=== PATIENT | male | born 1965 | race Caucasian/White ===

== ENCOUNTER 2016-10-23 13:19 | Emergency (ER) | payer SELFPAY ==
[~2016-10-23] VITALS: Ht 182.9 cm; Wt 115.5 kg
[2016-10-23 13:21] VITALS: BP 144/74; PULSE 100; RESP 18; TEMP 98.2; O2SAT 97
--- NOTE | 2016-10-23 13:40 | PD ---
Physical Exam Time Seen by Provider: 13:36 Narrative 51yo M c/o urinating blood since 11:30. L flank pain. Was given Toradol injection by [facility] Nurse. Hx of kidney stones w/ lithotripsy. Patient stable. Patient seen in triage. Awaiting bed placement. Data Data Last Documented VS Vital Signs Date Time Temp Pulse Resp B/P Pulse Ox O2 Delivery O2 Flow Rate FiO2 10/23/16 13:21 98.2 100 18 144/74 97 MDM Supervised Visit with HECTOR: Magda Mackenzie Oct 23, 2016 13:40
[2016-10-23] MEDS ORDERED: ONDANSETRON HCL 4 MG/2 ML VIAL IV PUSH ONE (14:30)
[2016-10-23] MEDS ORDERED: SODIUM CHLOR 0.9% 1000 ML INJ 1,000 ML IV ONE (14:30)
[2016-10-23] MEDS ORDERED: HYDROmorphone HCL PF 1 MG/ML VIAL IVS ONE (14:30)
--- NOTE | 2016-10-23 14:48 | PD ---
HPI Chief Complaint: Complaint Time Seen by Provider: 14:15 Travel History International Travel<30 days: No Contact w/Intl Traveler<30days: No Traveled to known affect area: No History of Present Illness HPI Patient is a 51-year-old male presenting to him or return for evaluation of left flank pain and hematuria patient states symptoms started at 10:30 this morning abruptly., Patient urinated and he passed bright red blood and noticed 2 small specks in his urine. Patient reports feeling nauseated and has vomited. He went to the clinic at work where the nurse gave him IV fluids and Toradol. Patient reports a history of kidney stones, he's had 2 previous surgeries with [place] u[facility]. Patient states he drinks 2 gallons of 3 T&A, he was advised by his doctor to avoid drinking sweet tea he states that he cannot give it up. Patient reports his pain is a 10 out of 10, the Toradol did not relieve his pain. PFSH Past Medical History Kidney Stones: Yes Past Surgical History Genitourinary Surgery: Yes (HE) Social History Alcohol Use: No Tobacco Use: Yes Substance Use: No Allergies-Medications (Allergen,Severity, Reaction): Coded Allergies: No Known Allergies (Unverified , 10/23/16) Reported Meds & Prescriptions Reported Meds & Active Scripts Active Percocet (Oxycodone-Acetaminophen) 5-325 mg Tab 1 Tab PO Q4H PRN Review of Systems Except as stated in HPI: all other systems reviewed are Neg Gastrointestinal: Positive: Nausea, Vomiting Genitourinary: Positive: Hematuria, Flank Pain Physical Exam Narrative GENERAL: Well-developed, well-nourished, alert male. Appears uncomfortable SKIN: Focused skin assessment warm/dry. HEAD: Atraumatic. Normocephalic. EYES: Pupils equal and round. No scleral icterus. No injection or drainage. ENT: No nasal bleeding or discharge. Mucous membranes pink and moist. NECK: Trachea midline. No JVD. CARDIOVASCULAR: Regular rate and rhythm. No murmur appreciated. RESPIRATORY: No accessory muscle use. Clear to auscultation. Breath sounds equal bilaterally. GASTROINTESTINAL: Abdomen soft, non-tender, nondistended. Hepatic and splenic margins not palpable. MUSCULOSKELETAL: No obvious deformities. No clubbing. No cyanosis. No edema. + CVAT on the left NEUROLOGICAL: Awake and alert. No obvious cranial nerve deficits. Motor grossly within normal limits. Normal speech. PSYCHIATRIC: Appropriate mood and affect; insight and judgment normal. Data Data Last Documented VS Vital Signs Date Time Temp Pulse Resp B/P Pulse Ox O2 Delivery O2 Flow Rate FiO2 10/23/16 15:12 17 10/23/16 13:21 98.2 100 144/74 97 Orders Urinalysis - C+S If Indicated (10/23/16 14:15) Ct Abd/Pel W/O Iv Contrast (10/23/16 ) Sodium Chlor 0.9% 1000 Ml Inj (Ns 1000 M (10/23/16 14:30) Iv Access Insert/Monitor (10/23/16 14:17) Ondansetron Inj (Zofran Inj) (10/23/16 14:30) Hydromorphone Pf Inj (Dilaudid Pf Inj) (10/23/16 14:30) Labs Laboratory Tests Test 10/23/16 15:11 Urine Color YELLOW Urine Turbidity HAZY Urine pH 6.0 Urine Specific [place] 1.044 Urine Protein 30 mg/dL Urine Glucose (UA) NEG mg/dL Urine Ketones 10 mg/dL Urine Occult Blood LARGE Urine Nitrite NEG Urine Bilirubin NEG Urine Urobilinogen 4.0 MG/DL Urine Leukocyte Esterase NEG Urine RBC /hpf Urine WBC 1 /hpf Urine Squamous Epithelial 1 /hpf Cells Urine Calcium Oxalate Crystals FEW /hpf Urine Mucus MANY /lpf Microscopic Urinalysis Comment CULT NOT INDICATED MDM Medical Decision Making Medical Screen Exam Complete: Yes Emergency Medical Condition: Yes Interpretation(s) Vital Signs Date Time Temp Pulse Resp B/P Pulse Ox O2 Delivery O2 Flow Rate FiO2 10/23/16 13:21 98.2 100 18 144/74 97 Differential Diagnosis uti vs calculi vs pyelonephritis Narrative Course Age is 49-year-old male presenting to the emergency department evaluation of left flank pain and hematuria. Patient states he is a history of kidney stones. Patient's vital signs are stable, he appears uncomfortable. Pain medication order per my attending physician. Urinalysis and CT scan ordered. CT scan shows several questionable tiny less than 1 mm left renal calculi with no obstruction. Urinalysis shows large occult blood, patient will be sent home with pain medication. He is encouraged to maintain adequate fluid intake, increase his intake of water and less sweet tea. He is encouraged to follow-up with his urologist. He was advised to return to emergency department for any new or worsening symptoms. Patient verbalized understanding of these instructions. Patient is stable for discharge. Diagnosis Primary Impression: Kidney stones Additional Impression: Hematuria Referrals: Primary Care Physician Urologist 1 week Patient Instructions: General Instructions Additional Instructions: Drink more water, less sweet tea Follow-up with urology Follow-up with primary doctor Return to the Emergency department for any new or worsening symptoms Do Not Drive or operate machinery while taking narcotic medication Med/Other Pt SpecificInfo: Prescription(s) given Scripts Naproxen 500 Mg [id number] Mg PO BID PRN (PAIN SCALE 1 TO 10) #60 TAB Ref 0 Prov:Becca Velásquez 10/23/16 Oxycodone-Acetaminophen (Percocet)5-325 mg Tab1 Tab PO Q4H PRN (PAIN) #12 TAB Ref 0 Prov:Bandar Torres MD 10/23/16 Disposition: 01 DISCHARGE HOME Condition: Stable Becca Velásquez Oct 23, 2016 14:48
--- NOTE | 2016-10-23 15:26 | RADRPT ---
EXAM DATE/TIME: 10/23/2016 14:49 [facility] COMPARISON: No previous studies available for comparison. INDICATIONS : Evaluate for renal calculi. Abdominal pain. ORAL CONTRAST: No oral contrast ingested. RADIATION DOSE: 26.83 CTDIvol (mGy) MEDICAL HISTORY : None SURGICAL HISTORY : None. ENCOUNTER: Initial ACUITY: 1 day PAIN SCALE: 6/10 LOCATION: Bilateral abdomen. TECHNIQUE: Volumetric scanning of the abdomen and pelvis was performed. Using automated exposure control and ad justment of the mA and/or kV according to patient size, radiation dose was kept as low as reasonably achievable to obtain optimal diagnostic quality images. FINDINGS: LOWER LUNGS: The visualized lower lungs are clear. LIVER: Homogeneous density without lesion. There is no dilation of the biliary tree. No calcified gallston es. SPLEEN: Normal size without lesion. PANCREAS: Within normal limits. KIDNEYS: Normal in size and shape. There is no mass or hydronephrosis. There are several questionable tiny le ss than 1 mm left renal calculi. The ureters are unremarkable. ADRENAL GLANDS: Within normal limits. VASCULAR: There is no aortic aneurysm. BOWEL/MESENTERY: The stomach, small bowel, and colon demonstrate no acute abnormality. There is no free intraperitone al air or fluid. ABDOMINAL WALL: Within normal limits. RETROPERITONEUM: There is no lymphadenopathy. BLADDER: No wall thickening or mass. REPRODUCTIVE: Within normal limits. INGUINAL: There is no lymphadenopathy or hernia. MUSCULOSKELETAL: Within normal limits for patient age. CONCLUSION: Several questionable tiny less than 1 mm left renal calculi with no obstruction. Tyrone Peñaloza MD on October 23, 2016 at 15:17 Board Certified Radiologist. This report was verified electronically.
[2016-10-23 15:44] LABS: BLOOD, URINE LARGE (NEG); CALCIUM OXALATE CRYSTALS,URINE FEW /hpf; GLUCOSE,URINE NEG (NEG); KETONE, URINE 10 mg/dL (NEG); MUCUS URINE MANY /lpf (OCC); NITRITE,URINE NEG (NEG); SQUAMOUS EPITHELIAL CELL URINE 1 /hpf (0-5); URINE COLOR YELLOW (YELLW/STRAW)
[2016-10-23 15:46] LABS: COMMENT (UR) CULT NOT INDICATED; CULTURE IF INDICATED CULT NOT INDICATED
[2016-10-23] MEDS ORDERED: PERC5TAB12 PO (15:54)
[2016-10-23 15:58] VITALS: BP 138/76; PULSE 81; RESP 16; TEMP 98.1; O2SAT 98
[2016-10-23] MEDS ORDERED: NAPR500T PO (15:59)
[2016-10-23 16:01] VITALS: BP 136/81; TEMP 97.8
--- NOTE | 2016-10-23 16:44 | PD ---
Data Data Last Documented VS Vital Signs Date Time Temp Pulse Resp B/P Pulse Ox O2 Delivery O2 Flow Rate FiO2 10/23/16 16:01 97.8 76 16 136/81 98 10/23/16 15:58 Room Air Orders Urinalysis - C+S If Indicated (10/23/16 14:15) Ct Abd/Pel W/O Iv Contrast (10/23/16 ) Sodium Chlor 0.9% 1000 Ml Inj (Ns 1000 M (10/23/16 14:30) Iv Access Insert/Monitor (10/23/16 14:17) Ondansetron Inj (Zofran Inj) (10/23/16 14:30) Hydromorphone Pf Inj (Dilaudid Pf Inj) (10/23/16 14:30) Labs Laboratory Tests Test 10/23/16 15:11 Urine Color YELLOW Urine Turbidity HAZY Urine pH 6.0 Urine Specific [place] 1.044 Urine Protein 30 mg/dL Urine Glucose (UA) NEG mg/dL Urine Ketones 10 mg/dL Urine Occult Blood LARGE Urine Nitrite NEG Urine Bilirubin NEG Urine Urobilinogen 4.0 MG/DL Urine Leukocyte Esterase NEG Urine RBC /hpf Urine WBC 1 /hpf Urine Squamous Epithelial 1 /hpf Cells Urine Calcium Oxalate Crystals FEW /hpf Urine Mucus MANY /lpf Microscopic Urinalysis Comment CULT NOT INDICATED MDM Supervised Visit with HECTOR: Yes Narrative Course The history, exam, and medical decision-making in the associated mid-level provider note were completed with my assistance. I reviewed and agree with the findings presented. I attest that I had a [id number] encounter with the patient on the same day, and personally performed and documented my assessment and findings in the medical record. *My assessment and Findings: 51-year-old man with flank pain, similar to previous kidney stones. He looks very uncomfortable on initial exam. Blood in his urine. CT scan only showed a couple punctate stones in the kidney, but no ureteral lithiasis. He passed a couple flecks of stone that could've been causing some of the pain. He looks otherwise well. Recommend supportive treatment and outpatient follow-up. He has a urologist. Diagnosis Primary Impression: Kidney stones Additional Impression: Hematuria Referrals: Primary Care Physician Urologist 1 week Patient Instructions: General Instructions, Kidney Stones (ED), Hematuria (ED) Departure Forms: Tests/Procedures Additional Instruction: Drink more water, less sweet tea Follow-up with urology Follow-up with primary doctor Return to the Emergency department for any new or worsening symptoms Do Not Drive or operate machinery while taking narcotic medication Scripts Naproxen 500 Mg [id number] Mg PO BID PRN (PAIN SCALE 1 TO 10) #60 TAB Ref 0 Prov:Becca Velásquez 10/23/16 Oxycodone-Acetaminophen (Percocet)5-325 mg Tab1 Tab PO Q4H PRN (PAIN) #12 TAB Ref 0 Prov:Bandar Torres MD 10/23/16 Disposition: 01 DISCHARGE HOME Condition: Stable Bandar Torres MD Oct 23, 2016 16:44
== END 2016-10-23 16:01 | disposition home or self-care (01) ==
LOC: NEPD 13:19
DX: N20.0 Calculus of kidney (principal); R31.9 Hematuria, unspecified; R11.2 Nausea with vomiting, unspecified; Z87.442 Personal history of urinary calculi; Z72.0 Tobacco use
CPT/HCPCS: 74176; 81001; 96361; 96374; 96375; 99284; J1170; J2405; J7030